=== PATIENT | female | born 1995 | race Caucasian/White ===

== ENCOUNTER 2019-06-18 14:00 | Emergency (ER) | payer OTHER ==
[~2019-06-18] VITALS: Ht 165.1 cm; Wt 69.2 kg
[2019-06-18 14:48] LABS: BASOPHILS # (AUTO) 0.01 x10^3/uL (0-0.1); BASOPHILS % (AUTO) 0 % (0-1); EOSINOPHILS # (AUTO) 0.11 x10^3/uL (0-0.4); EOSINOPHILS % (AUTO) 1 % (1-7); LYMPHOCYTES # (AUTO) 0.47 x10^3/uL (1-3.4); LYMPHOCYTES % (AUTO) 4 % (22-44); MD NO; MEAN CORPUSCULAR HEMOGLOBIN 28.9 pg (27.0-34.8); MEAN CORPUSCULAR HGB CONC 33.3 g/dL (32.4-35.8); MEAN CORPUSCULAR VOLUME 86.6 fL (80-100); MEAN PLATELET VOLUME 8.8 fL (7.4-10.4); MONOCYTES # (AUTO) 0.27 x10^3/uL (0.2-0.8); MONOCYTES % (AUTO) 3 % (2-9); NEUTROPHILS # (AUTO) 9.74 x10^3/uL (1.8-6.8); NEUTROPHILS % (AUTO) 92 % (42-75); PLATELET COUNT 343 x10^3/uL (130-400); RED BLOOD COUNT 4.91 x10^6/uL (3.82-5.3); RED CELL DISTRIBUTION WIDTH 14.4 % (9.6-15.2)
[2019-06-18 14:57] LABS: ALANINE AMINOTRANSFERASE 19 U/L (12-78); ALBUMIN 3.3 g/dL (3.4-5.0); ANION GAP 10 mmol/L (5-15); CALCIUM 9.2 mg/dL (8.5-10.1); CHLORIDE 106 mmol/L (98-107); CREATININE 0.72 mg/dL (0.55-1.02)
[2019-06-18 15:06] LABS: MICROSCOPIC INDICATED
[2019-06-18 15:16] LABS: ALKALINE PHOSPHATASE 76 U/L (45-117); BILIRUBIN,TOTAL 0.5 mg/dL (0.2-1.0); TOTAL PROTEIN 8.1 g/dL (6.4-8.2)
[2019-06-18 15:35] LABS: CULTURE INDICATED? YES
--- NOTE | 2019-06-18 16:14 | NUR ---
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
--- NOTE | 2019-06-18 16:47 | NUR ---
ASSUMED CARE OF PATIENT. PATIENT REPOERTS SHE IS 16 WEEKS AND HAS HAS N/V/D SINCE YESTERDAY. PT ALSO REPORTS BILATERAL LOWER ABD PAIN. FAMILY AT BEDSIDE. VS STABLE. BLANKET GIVEN. CALL LIGHT IN PLACE. WILL CONTINUE TO MONITOR.
--- NOTE | 2019-06-18 17:29 | NUR ---
PT RESTING IN ROOM. VS STABLE. NO ACUTE DISTRESS NOTED. WILL CONTINUE TO MONITOR.
[2019-06-18] MEDS ORDERED: ONDANSETRON 2MG/ML, 2ML ONE (17:51)
[2019-06-18] MEDS ORDERED: ONDANSETRON 2MG/ML, 2ML IVPush ONE (18:00)
[2019-06-18] MEDS ORDERED: SODIUM CHLORIDE 0.9% 1,000ML IVBOLUS ONE ×2 (18:00)
[2019-06-18 19:41] VITALS: BP 104/54
== END 2019-06-18 19:56 | disposition home or self-care (01) ==
LOC: ED 16:48
DX: O21.9 Vomiting of pregnancy, unspecified (principal); O26.892 Other specified pregnancy related conditions, second trimester; E86.0 Dehydration; R19.7 Diarrhea, unspecified; Z3A.16 16 weeks gestation of pregnancy
CPT/HCPCS: 36415; 76815; 80053; 81001; 84702; 85025; 87086; 96361; 96374; 99284; J2405; J7030

== ENCOUNTER 2019-11-24 13:19 | Outpatient (CLI) | payer BC ==
[~2019-11-24] VITALS: Ht 165.1 cm; Wt 79.5 kg
[2019-11-24 13:30] VITALS: BP 111/66
[2019-11-25] MEDS ORDERED: PREN-3 PO (06:30)
== END 2019-11-24 14:34 | disposition home or self-care (01) ==
LOC: LDOP 13:19
PROVIDERS: ATTEND Student in an Organized Health Care Education/Training Program
DX: O26.893 Other specified pregnancy related conditions, third trimester (principal); R10.9 Unspecified abdominal pain; Z3A.39 39 weeks gestation of pregnancy
CPT/HCPCS: 59025; 99211; G0463

== ENCOUNTER 2019-11-25 06:07 | Inpatient (IN) | payer BC ==
[~2019-11-25] VITALS: Ht 165.1 cm; Wt 79.5 kg
[2019-11-25] MEDS ORDERED: OXYTOCIN 30U/ 0.9% NaCL 500ML 500 ML IV ONE (06:13)
[2019-11-25] MEDS ORDERED: D5%-LACTATED RINGERS 1,000 ML IV SCH (06:13)
[2019-11-25 06:24] VITALS: BP 112/65
[2019-11-25] MEDS ORDERED: TERBUTALINE 1 MG/ML, 1ML SQ PRN (06:30)
[2019-11-25] MEDS ORDERED: ONDANSETRON 2MG/ML, 2ML IVPush PRN (06:30)
[2019-11-25] MEDS ORDERED: PLEASE ENTER HEIGHT AND WEIGHT MC SCH (06:30)
[2019-11-25] MEDS ORDERED: FENTANYL PF 100 MCG/2ML IVPush PRN (06:30)
[2019-11-25] MEDS ORDERED: PREN-3 PO (06:30)
[2019-11-25] MEDS ORDERED: FENTANYL PF 100 MCG/2ML IV PRN (06:30)
[2019-11-25] MEDS ORDERED: TERBUTALINE 1 MG/ML, 1ML IVPush PRN (06:30)
[2019-11-25] MEDS ORDERED: OXYTOCIN 30U/ 0.9% NaCL 500ML 500 ML IV PRN (06:41)
[2019-11-25] MEDS ORDERED: LIDOCAINE 1%, 20ML ONE (06:48)
[2019-11-25] MEDS ORDERED: OXYTOCIN 30U/ 0.9% NaCL 500ML 500 ML ONE (06:49)
[2019-11-25] MEDS ORDERED: MISOPROSTOL 200 MCG TABLET ONE (06:49)
[2019-11-25] MEDS: LACTATED RINGERS 1,000 ML IV SCH ×2 (06:58→14:15)
[2019-11-25 07:08] LABS: BASOPHILS # (AUTO) 0.03 x10^3/uL (0-0.1); BASOPHILS % (AUTO) 0 % (0-1); EOSINOPHILS % (AUTO) 0 % (1-7); LYMPHOCYTES # (AUTO) 1.57 x10^3/uL (1-3.4); LYMPHOCYTES % (AUTO) 19 % (22-44); MD NO; MEAN CORPUSCULAR HEMOGLOBIN 28.1 pg (27.0-34.8); MEAN CORPUSCULAR HGB CONC 33.1 g/dL (32.4-35.8); MEAN CORPUSCULAR VOLUME 84.9 fL (80-100); MEAN PLATELET VOLUME 8.9 fL (7.4-10.4); MONOCYTES # (AUTO) 0.45 x10^3/uL (0.2-0.8); MONOCYTES % (AUTO) 5 % (2-9); NEUTROPHILS % (AUTO) 76 % (42-75); PLATELET COUNT 280 x10^3/uL (130-400); RED BLOOD COUNT 4.01 x10^6/uL (3.82-5.3); RED CELL DISTRIBUTION WIDTH 14.3 % (9.6-15.2)
[2019-11-25] MEDS ORDERED: NEWBORN KIT ONE (07:42)
[2019-11-25] MEDS ORDERED: FENTANYL PF 100 MCG/2ML ONE (14:12)
[2019-11-25] MEDS ORDERED: OXYTOCIN 10 UNITS/ML, 1ML ONE (14:55)
[2019-11-25] MEDS: OXYTOCIN 30U/ 0.9% NaCL 500ML 500 ML IV SCH (15:21)
[2019-11-25] MEDS ORDERED: IBUPROFEN 600 MG TABLET ONE (15:26)
[2019-11-25] MEDS: IBUPROFEN 600 MG TABLET PO PRN ×2 (15:27→21:02)
[2019-11-25] MEDS ORDERED: OXYTOCIN 10 UNITS/ML, 1ML IM ONE (15:30)
[2019-11-25] MEDS ORDERED: ONDANSETRON 2MG/ML, 2ML IV PRN (15:30)
[2019-11-25] MEDS ORDERED: SIMETHICONE 80 MG CHEW TAB PO PRN (15:30)
[2019-11-25] MEDS ORDERED: IBUPROFEN 800 MG TABLET PO PRN (15:30)
[2019-11-25] MEDS ORDERED: METHYLERGONOVINE 0.2 MG/ML IM PRN (15:30)
[2019-11-25] MEDS ORDERED: METOCLOPRAMIDE 5 MG/ML, 2ML IV PRN (15:30)
[2019-11-25] MEDS ORDERED: OXYcodone/APAP 5/325MG TABLET PO PRN ×2 (15:30)
[2019-11-25] MEDS ORDERED: MISOPROSTOL 200 MCG TABLET PR PRN (15:30)
[2019-11-25] MEDS ORDERED: ACETAMINOPHEN 325 MG TABLET PO PRN (15:30)
[2019-11-25 17:15] VITALS: BP 99/59
[2019-11-25 19:30] VITALS: BP 99/67
[2019-11-25] MEDS: DOCUSATE 100 MG CAPSULE PO PRN (21:02)
[2019-11-25 23:11] LABS: MEAN CORPUSCULAR HEMOGLOBIN 28.1 pg (27.0-34.8); MEAN CORPUSCULAR HGB CONC 33.1 g/dL (32.4-35.8); MEAN CORPUSCULAR VOLUME 84.7 fL (80-100); PLATELET COUNT 290 x10^3/uL (130-400); RED CELL DISTRIBUTION WIDTH 14.3 % (9.6-15.2)
[2019-11-25 23:29] LABS: BASOPHILS # (AUTO) 0.09 x10^3/uL (0-0.1); BASOPHILS % (AUTO) 1 % (0-1); EOSINOPHILS % (AUTO) 0 % (1-7); LYMPHOCYTES # (AUTO) 2.13 x10^3/uL (1-3.4); LYMPHOCYTES % (AUTO) 14 % (22-44); MD SCAN; MONOCYTES # (AUTO) 0.72 x10^3/uL (0.2-0.8); MONOCYTES % (AUTO) 5 % (2-9); NEUTROPHILS # (AUTO) 12.58 x10^3/uL (1.8-6.8); NEUTROPHILS % (AUTO) 81 % (42-75)
[2019-11-26 00:15] VITALS: BP 94/56
[2019-11-26] MEDS: OXYTOCIN 30U/ 0.9% NaCL 500ML 500 ML IV SCH ×2 (01:11→11:11)
[2019-11-26 04:00] VITALS: BP 96/61
[2019-11-26] MEDS: IBUPROFEN 600 MG TABLET PO PRN ×2 (06:23→13:34)
[2019-11-26] MEDS ORDERED: IBUP-1222 PO (06:46)
[2019-11-26 06:55] VITALS: BP 98/62
[2019-11-26] MEDS: DOCUSATE 100 MG CAPSULE PO PRN (07:48)
[2019-11-26] MEDS ORDERED: PRENATAL VIT/IRON/FA 1 EACH TABLET PO SCH (09:00)
== END 2019-11-26 15:25 | disposition home or self-care (01) | DRG 807 ==
LOC: LDIP 06:07 → 2NW 17:09
PROVIDERS: ADMIT Student in an Organized Health Care Education/Training Program; ATTEND Student in an Organized Health Care Education/Training Program
PROC: 10E0XZZ Delivery of Products of Conception, External Approach (ICD-10-PCS; principal; 2019-11-25)
PROC: 3E033VJ Introduction of Other Hormone into Peripheral Vein, Percutaneous Approach (ICD-10-PCS; 2019-11-25)
PROC: 10907ZC Drainage of Amniotic Fluid, Therapeutic from Products of Conception, Via Natural or Artificial Opening (ICD-10-PCS; 2019-11-25)
DX: O99.354 Diseases of the nervous system complicating childbirth (principal); Z37.0 Single live birth; Z3A.39 39 weeks gestation of pregnancy; G43.909 Migraine, unspecified, not intractable, without status migrainosus
CPT/HCPCS: 36415; 85025; 86592; 86850; 86900; G0378; J3010; J2590; J7120

== ENCOUNTER 2020-02-25 09:03 | Outpatient (CLI) | payer BC ==
[~2020-02-25 09:03] MED LIST: IBUP-1222 PO; PREN-3 PO
[2020-02-25 10:43] LABS: BASOPHILS # (AUTO) 0.03 x10^3/uL (0-0.1); BASOPHILS % (AUTO) 1 % (0-1); EOSINOPHILS % (AUTO) 0 % (1-7); LYMPHOCYTES # (AUTO) 1.74 x10^3/uL (1-3.4); LYMPHOCYTES % (AUTO) 24 % (22-44); MD NO; MEAN CORPUSCULAR HEMOGLOBIN 26.7 pg (27.0-34.8); MEAN CORPUSCULAR HGB CONC 32.6 g/dL (32.4-35.8); MEAN CORPUSCULAR VOLUME 81.9 fL (80-100); MEAN PLATELET VOLUME 9.1 fL (7.4-10.4); MONOCYTES # (AUTO) 0.44 x10^3/uL (0.2-0.8); MONOCYTES % (AUTO) 6 % (2-9); NEUTROPHILS # (AUTO) 5.16 x10^3/uL (1.8-6.8); NEUTROPHILS % (AUTO) 70 % (42-75); PLATELET COUNT 383 x10^3/uL (130-400); RED BLOOD COUNT 4.76 x10^6/uL (3.82-5.3); RED CELL DISTRIBUTION WIDTH 14.6 % (9.6-15.2)
[2020-02-25 10:45] LABS: MICROSCOPIC NOT IND
[2020-02-25 10:48] LABS: ANION GAP 4 mmol/L (5-15); CALCIUM 9.4 mg/dL (8.5-10.1); CHLORIDE 109 mmol/L (98-107)
[2020-02-25 10:55] LABS: ALANINE AMINOTRANSFERASE 37 U/L (12-78); ALKALINE PHOSPHATASE 97 U/L (45-117); BILIRUBIN,TOTAL 0.2 mg/dL (0.2-1.0); CREATININE 0.84 mg/dL (0.55-1.02); TOTAL PROTEIN 8.3 g/dL (6.4-8.2)
[2020-02-25] MEDS ORDERED: SERT100T32 PO (14:05)
== END 2020-02-25 23:59 | disposition home or self-care (01) ==
LOC: STAR 09:03
PROVIDERS: ATTEND Student in an Organized Health Care Education/Training Program
DX: Z01.818 Encounter for other preprocedural examination (principal); Z11.59 Encounter for screening for other viral diseases
CPT/HCPCS: 36415; 80053; 81003; 84702; 85025; 87635